=== PATIENT | female | born 1985 | race African-American/Black ===

== ENCOUNTER 2018-11-22 21:53 | Emergency (ER) | payer OTHER ==
[~2018-11-22] VITALS: Ht 154.9 cm; Wt 54.4 kg
[2018-11-22] MEDS ORDERED: CLON.1 (22:08)
[2018-11-22] MEDS ORDERED: AMPDEX5 (22:08)
== END 2018-11-22 23:55 | disposition home or self-care (01) ==
LOC: ER 21:53
DX: S16.1XXA Strain of muscle, fascia and tendon at neck level, initial encounter (principal); S20.219A Contusion of unspecified front wall of thorax, initial encounter; I10 Essential (primary) hypertension; Z91.011 Allergy to milk products; Z91.018 Allergy to other foods; Z79.899 Other long term (current) drug therapy; V89.2XXA Person injured in unspecified motor-vehicle accident, traffic, initial encounter
CPT/HCPCS: 71046; 72125; 93005; 93010; 99284-25